=== PATIENT | male | born 1970 | race Two or more races ===

== ENCOUNTER 2018-07-25 19:09 | Emergency (ER) | payer SELFPAY ==
[~2018-07-25] VITALS: Ht 165.1 cm; Wt 83.9 kg
[2018-07-25 19:17] VITALS: BP 183/114
--- NOTE | 2018-07-25 20:05 | NUR ---
Rechecked pt's BP upon discharge. BP is now 166/111. Spoke to Lakeshia Mtz PA-C. Pt is ok to be d/c'd home. Pt rec'd all ACI. Pt ambulated out with a steady gait.
== END 2018-07-25 20:08 | disposition home or self-care (01) ==
LOC: EDSEX 19:10 → ER 19:10
DX: Z76.0 Encounter for issue of repeat prescription (principal); I10 Essential (primary) hypertension; Z60.2 Problems related to living alone
CPT/HCPCS: A4606; Z7610